=== PATIENT | female | born 1990 | race Caucasian/White ===

== ENCOUNTER 2017-03-07 17:56 | Emergency (ER) | payer OTHER ==
[~2017-03-07] VITALS: Ht 162.6 cm; Wt 77.1 kg
[2017-03-07 18:05] VITALS: BP 137/78
--- NOTE | 2017-03-07 18:11 | PHYS DOC ---
Past Medical History Past Medical History: No Pertinent History Past Surgical History: Other Additional Past Surgical Histo: DENTAL Alcohol Use: None Drug Use: None Adult General Chief Complaint Chief Complaint: INSECT BITE HPI HPI Patient is a 26 year old female presents the ED complaining of insect bite to left lower leg 2 months ago. Patient states she pulled the scab off today and noticed it oozing. Describes the pain as sharp. Rates the pain as 5/10. Denies fever, body aches, chills, nausea/vomiting, abdominal pain, chest pain, shortness of breath, conjunctivitis or rash to entire body. Review of Systems Review of Systems Constitutional: Denies fever or chills [] Eyes: Denies change in visual acuity, redness, or eye pain [] HENT: Denies nasal congestion or sore throat [] Respiratory: Denies cough or shortness of breath [] Cardiovascular: No additional information not addressed in HPI [] GI: Denies abdominal pain, nausea, vomiting, bloody stools or diarrhea [] : Denies dysuria or hematuria [] Musculoskeletal: Denies back pain or joint pain [] Integument: Complains of insect bite. Neurologic: Denies headache, focal weakness or sensory changes [] Endocrine: Denies polyuria or polydipsia [] All other systems were reviewed and found to be within normal limits, except as documented in this note. Allergies Allergies Allergies Coded Allergies Type Severity Reaction Last Updated Verified No Known Drug Allergies 12/18/13 No Physical Exam Physical Exam Constitutional: Well developed, well nourished, no acute distress, non-toxic appearance. [] HENT: Normocephalic, atraumatic, oropharynx moist Eyes: PERRLA, EOMI, conjunctiva normal, no discharge. [] Skin: Warm, dry, NICKEL SIZED INSECT BITE TO LEFT INNER CALF. NO SURROUNDING ERYTHEMA. MILD CLEAR OOZING. Back: No tenderness, no CVA tenderness. [] Extremities: No tenderness, no cyanosis, no clubbing, ROM intact, no edema. NEGATIVE HOMANS.[] Neurologic: Alert and oriented X 3, normal motor function, normal sensory function, no focal deficits noted. [] Psychologic: Affect normal, judgement normal, mood normal. [] Current Patient Data Vital Signs Vital Signs Date Time Temp Pulse Resp B/P (MAP) Pulse Ox O2 Delivery O2 Flow Rate FiO2 03/07/17 18:05 98.4 110 20 97 Room Air 98.4 EKG EKG [] Radiology/Procedures Radiology/Procedures [] Course & Med Decision Making Course & Med Decision Making Pertinent Labs and Imaging studies reviewed. (See chart for details) []Tetanus up-to-date. Will discharge with Keflex. Discussed wound treatment. Discussed leaving the scab attached. Discussed follow-up with dermatology if wound does not heal. Provided contact information/education. Discussed reasons to return to the ED. Patient understands and agrees with plan. Dragon Disclaimer Dragon Disclaimer This electronic medical record was generated, in whole or in part, using a voice recognition dictation system. Departure Departure Impression: Primary Impression: Insect bite Disposition: 01 HOME, SELF-CARE Condition: STABLE Referrals: UNKNOWN PCP NAME (PCP) JACQUELINE GARCIA MD Patient Instructions: Insect Bite Scripts Cephalexin (CEPHALEXIN) 500 Mg Capsule 1 CAP PO TID, #30 CAP Prov: BRADLY PASTOR 03/07/17 BRADLY PASTOR Mar 07, 2017 18:11
[2017-03-07] MEDS ORDERED: CEPH500C PO (18:24)
== END 2017-03-07 18:37 | disposition home or self-care (01) ==
LOC: ER 17:56
DX: S80.862A Insect bite (nonvenomous), left lower leg, initial encounter (principal); W57.XXXA Bitten or stung by nonvenomous insect and other nonvenomous arthropods, initial encounter; Y93.89 Activity, other specified; Y99.8 Other external cause status; Y92.89 Other specified places as the place of occurrence of the external cause
CPT/HCPCS: 99283

== ENCOUNTER 2020-04-26 23:02 | Emergency (ER) | payer OTHER ==
[~2020-04-26] VITALS: Ht 162.6 cm; Wt 75.0 kg
[~2020-04-26 23:02] MED LIST: CEPH500C PO
[2020-04-26 23:40] LABS: BASO # 0.1 x10^3/uL (0.0-0.2); BASO % 1 % (0-3); EOS # 0.1 x10^3/uL (0.0-0.7); EOS % 1 % (0-3); HEMATOCRIT 40.2 % (36.0-47.0); HEMOGLOBIN 14.2 g/dL (12.0-15.5); LYMPH # 3.6 x10^3/uL (1.0-4.8); LYMPH % 38 % (24-48); MEAN CORPUSCULAR HEMOGLOBIN 32 pg (25-35); MEAN CORPUSCULAR HGB CONC 35 g/dL (31-37); MEAN CORPUSCULAR VOLUME 89 fL (79-100); MONO # 0.8 x10^3/uL (0.0-1.1); MONO % 8 % (0-9); NEUT # 5.1 x10^3/uL (1.8-7.7); NEUT % 53 % (31-73); PLATELET COUNT 218 x10^3/uL (140-400); RED CELL DISTRIBUTION WIDTH 12.6 % (11.5-14.5); WHITE BLOOD COUNT 9.6 x10^3/uL (4.0-11.0)
[2020-04-26 23:42] LABS: BILIRUBIN,URINE NEGATIVE (NEG); CLARITY,URINE CLEAR; COLOR,URINE YELLOW; NITRITE,URINE NEGATIVE (NEG); PROTEIN,URINE NEGATIVE (NEG-TRACE)
[2020-04-26] MEDS ORDERED: METOCLOPRAMIDE HCL 10 MG/2 ML VIAL. IVP ONE (23:45)
[2020-04-26] MEDS ORDERED: FAMOTIDINE 20 MG/2 ML VIAL IVP ONE (23:45)
[2020-04-26] MEDS ORDERED: HYDROmorphone 2 MG/ML VIAL IVP ONE (23:45)
[2020-04-26] MEDS ORDERED: IV NORMAL SALINE 1000ML BAG 1,000 ML IV SCH (23:45)
--- NOTE | 2020-04-26 23:45 | PHYS DOC ---
Past Medical History Past Medical History: No Pertinent History Past Surgical History: Hysterectomy, Other Additional Past Surgical Histo: DENTAL Smoking Status: Current Every Day Smoker Alcohol Use: Occasionally Drug Use: None General Adult EDM: Chief Complaint: ABDOMINAL PAIN HPI: HPI: 30 yo F F with no significant past medical history presents the ED with complaints of right flank pain that is now moving into her right side upper and lower abdomen, reports it is difficult to localize, with associated nausea and nonbloody nonbilious vomiting that started around 5 PM. Patient states she had had 1 beer prior to symptom onset, reports she rarely drinks alcohol. No prior history of similar symptoms. PSH tubal ligation, LMP 2 wks ago. Review of Systems: Review of Systems: Constitutional: Denies fever or chills. [] Eyes: Denies change in visual acuity. [] HENT: Denies nasal congestion or sore throat. [] Respiratory: Denies cough or shortness of breath. [] Cardiovascular: Denies chest pain or edema. [] GI: Denies medic easier, melena, hematemesis or diarrhea : Denies dysuria, hematuria or vaginal bleeding Musculoskeletal: Denies joint pain or swelling, or midline back pain Integument: Denies rash or diaphoresis Neurologic: Denies headache, neck stiffness, focal weakness or sensory changes. [] Endocrine: Denies polyuria or polydipsia. [] Lymphatic: Denies swollen glands. [] Psychiatric: Denies depression or anxiety. [] Heart Score: Risk Factors: Risk Factors: DM, Current or recent (<one month) smoker, HTN, HLP, family history of CAD, obesity. Risk Scores: Score 0 - 3: 2.5% MACE over next 6 weeks - Discharge Home Score 4 - 6: 20.3% MACE over next 6 weeks - Admit for Clinical Observation Score 7 - 10: 72.7% MACE over next 6 weeks - Early Invasive Strategies Current Medications: Current Medications Medications (Trade) Dose Ordered Sig/Nestor Start Time Stop Time Status Last Admin Dose Admin Famotidine (Pepcid Vial) 20 mg 1X ONCE 04/26/20 23:45 04/26/20 23:46 Metoclopramide HCl (Reglan Vial) 10 mg 1X ONCE 04/26/20 23:45 04/26/20 23:46 Sodium Chloride 1,000 ml @ 1,000 mls/hr Q1H 04/26/20 23:45 04/27/20 00:44 Allergies: Allergies: Allergies Coded Allergies Type Severity Reaction Last Updated Verified No Known Drug Allergies 12/18/13 No Physical Exam: PE: Constitutional: Appears uncomfortable and in pain, well-nourished, afebrile HENT: Normocephalic, atraumatic, Eyes: EOMI, conjunctiva normal, no discharge. Neck: Normal range of motion, supple, Cardiovascular: S1/2 present, regular rhythm-tachycardic on arrival Lungs & Thorax: Speaking in full sentences, bilateral equal chest rise, no tachypnea or increased work of breathing Abdomen: soft, right upper quadrant tenderness, right lower quadrant tenderness, epigastric tenderness, no rigidity or guarding Skin: Warm, dry, no erythema, no rash. [] Back: No midline tenderness, reports right CVA tenderness-negative lloyds punch Extremities: No tenderness, no cyanosis, no edema Neurologic: Alert and oriented X 3, normal motor function, normal sensory function, no focal deficits noted. [] Psychologic: Affect normal, judgement normal, mood normal. [] Current Patient Data: Labs: Laboratory Tests Test 04/26/20 23:18 04/26/20 23:37 White Blood Count 9.6 x10^3/uL (4.0-11.0) Red Blood Count 4.50 x10^6/uL (3.50-5.40) Hemoglobin 14.2 g/dL (12.0-15.5) Hematocrit 40.2 % (36.0-47.0) Mean Corpuscular Volume 89 fL (79-100) Mean Corpuscular Hemoglobin 32 pg (25-35) Mean Corpuscular Hemoglobin Concent 35 g/dL (31-37) Red Cell Distribution Width 12.6 % (11.5-14.5) Platelet Count 218 x10^3/uL (140-400) Neutrophils (%) (Auto) 53 % (31-73) Lymphocytes (%) (Auto) 38 % (24-48) Monocytes (%) (Auto) 8 % (0-9) Eosinophils (%) (Auto) 1 % (0-3) Basophils (%) (Auto) 1 % (0-3) Neutrophils # (Auto) 5.1 x10^3/uL (1.8-7.7) Lymphocytes # (Auto) 3.6 x10^3/uL (1.0-4.8) Monocytes # (Auto) 0.8 x10^3/uL (0.0-1.1) Eosinophils # (Auto) 0.1 x10^3/uL (0.0-0.7) Basophils # (Auto) 0.1 x10^3/uL (0.0-0.2) POC Urine HCG, Qualitative Hcg negative (Negative) Laboratory Tests 04/26/20 23:18 Vital Signs: Vital Signs Date Time Temp Pulse Resp B/P (MAP) Pulse Ox O2 Delivery O2 Flow Rate FiO2 04/26/20 23:17 98.3 103 20 138/81 (100) 99 Room Air 98.3 EKG: EKG: [] Radiology/Procedures: Radiology/Procedures: []IMAGING REPORT Signed PATIENT: ROSMERY DOWLING CACCOUNT: [id number] : 1990 LOCATION: ER AGE: 30 SEX: F EXAM STATUS: PRE ER ORD. PHYSICIAN: KRYSTAL CABAN DO REASON: right flank pain into ruq/rlq PROCEDURE: CT ABDOMEN PELVIS WO CONTRAST PQRS Compliance Statement: One or more of the following individualized dose reduction techniques were utilized for this examination: 1. Automated exposure control 2. Adjustment of the mA and/or kV according to patient size 3. Use of iterative reconstruction technique CT abdomen/pelvis without contrast 04/26/2020 12:08 AM INDICATION: Right flank pain COMPARISON: None available TECHNIQUE: Multiple axial CT images of the abdomen and pelvis were obtained without intravenous contrast. Coronal and sagittal reformats are provided. FINDINGS: Lung bases are clear. Heart size within normal limits. Liver, spleen, adrenal glands, pancreas and gallbladder are normal in appearance. The abdominal aorta is normal in course and caliber. There are no pathologically enlarged lymph nodes in the abdomen and pelvis. There is no abdominal free fluid. There is no free intraperitoneal air. Small and large bowel are normal in caliber. There is no evidence for bowel obstruction. There are no pericolonic inflammatory changes. A normal, nondilated appendix is visualized without adjacent inflammatory changes. The kidneys are relatively symmetric in appearance. There is no suspicious renal mass within the limitations of a noncontrast examination. There is no hydronephrosis. There are no calculi within the kidneys, ureters or urinary bladder. Urinary bladder is within normal limits given degree of distention. Uterus and adnexa are normal by CT. No suspicious osseous abnormality is identified. IMPRESSION: No acute abnormality is identified in abdomen and pelvis. Electronically signed by: Charo Elizabeth MD (04/27/2020 12:31 AM) [facility] DICTATED and SIGNED BY: CHARO ELIZABETH MD DATE: 04/27/20 [id number] 0 Course & Med Decision Making: Course & Med Decision Making Pertinent Labs and Imaging studies reviewed. (See chart for details) Patient presented to the emergency department with nausea and vomiting with nonspecific nonlocalized abdominal pain, drug screen positive for marijuana. CT scan with normal gallbladder and appendix. Patients' pain, tachycardia, nausea and vomiting resolved. Potassium 3.4. Urinalysis with no infection or hematuria. Will discourage marijuana use and prescribe capsaicin cream for abdominal application, along with recommend warm hot showers. Will discharge home with strict ED return precautions were given for abdominal pain, dehydration, fever, nausea or vomiting. Encouraged urgent outpatient follow-up with PMD and GI as needed. Life-threatening processes were considered but are low suspicion at this time, given history, physical exam and ED workup. Pt was educated on all prescription medications and adverse effects. All patient's questions were answered and pt was stable at time of discharge. Life/limb-threatening differential includes but is not limited to, acute coronary syndrome/myocardial infarction, Boerhaave's, DKA, intracranial hemorrhage, ischemic bowel, meningitis, sepsis, surgical abdomen (AAA. acute appendicitis/cholecysitis, etc), toxidrome (drug over/overdose/carbon monoxide, etc), ovarian/testicular torsion, trauma, or infection/sepsis. I spoken with the patient and her caregivers. I explained the patient's condition, diagnoses and treatment plan based on the information available to me at this time. I have answered the patient and her caregiver's questions and addressed any concerns. The patient and her caregivers have a good understanding of patient's diagnosis, condition and treatment plan as can be expected at this point. Vital signs have been stable. Patient's condition is stable and appropriate for discharge from the emergency department. Patient will pursue further outpatient evaluation with primary care physician or other designated or consulting physician as outlined in the discharge instructions. The patient and/or caregivers are agreeable to this plan of care and follow-up instructions have been explained in detail. The patient and/or caregivers have received these instructions in written form and have expressed an understanding of the discharge instructions. The patient and/or caregivers are aware that any significant change of condition or worsening of symptoms should prompt immediate return to this or the closest emergency department or [facility] Disclaimer: Antonio Disclaimer: This electronic medical record was generated, in whole or in part, using a voice recognition dictation system. Departure Departure Impression: Primary Impression: Cannabinoid hyperemesis syndrome Additional Impressions: Nausea and vomiting Abdominal pain Marijuana use Disposition: 01 DC HOME SELF CARE/HOMELESS Condition: STABLE Referrals: UNKNOWN PCP NAME (PCP) FOLLOW UP WITH FAMILY MEDICINE: Family Medicine Address: [address] [place] [id number] Patient Instructions: Marijuana Abuse and Chemical Dependency, Nausea and Vomi ting Additional Instructions: FOLLOW UP WITH GASTROENTEROLOGY: Gastroenterology [facility] Address: [address] [place] [address] EMERGENCY DEPARTMENT GENERAL DISCHARGE INSTRUCTIONS Thank you for coming to [facility] Emergency Department (ED) today and trusting us with you care. We trust that you had a positive experience in our Emergency Department. If you wish to speak to the department management, you may call the Director at [phone]. YOUR FOLLOW UP INSTRUCTIONS ARE FOLLOWS: 1. Do you have a private Doctor? If you do not have a private doctor, please ask for a resource list of physicians or clinics that may be able to assist you with follow up care. 2. The Emergency Physicain has interpreted your x-rays. The X-Ray specialist will also review them. If there is a change in the findings, you will be notified in 48 hours when at all possible. 3. A lab test or culture has been done, your results will be reviewed and you will be notified if you need a change in treatment. ADDITIONAL INSTRUCTIONS AND INFORMATION: 1. Your care today has been supervised by a physician who is specially trained in emergency care. Many problems require more than one evaluation for a complete diagnosis and treatment. We recommend that you schedule your follow up appointment as recommended to ensure complete treatment of you illness or injury. If you are unable to obtain follow up care and continue to have a problem, or if your condition worsens, we recommend that you return to the ED. 2. We are not able to safely determine your condition over the phone nor are we able to give sound medical advice over the phone. For these safety reasons, if you call for medical advice we will ask you to come to the ED for further evaluation. 3. If you have any questions regarding these discharge instructions please call the ED at [phone]. SAFETY INFORMATION: In the interest of safety, wellness, and injury prevention; we encourage you to wear your sealbelt, if you smoke; quite smoking, and we encourage family to use a protective helmet for bicycling and other sporting events that present an increased risk for head injury. IF YOUR SYMPTOMS WORSEN OR NEW SYMPTOMS DEVELOP, OR YOU HAVE CONCERNS ABOUT YOUR CONDITION; OR IF YOUR CONDITION WORSENS WHILE YOU ARE WAITING FOR YOUR FOLLOW UP APPOINTMENT; EITHER CONTACT YOUR PRIMARY CARE DOCTOR, THE PHYSICIAN WHOSE NAME AND NUMBER YOU WERE GIVEN, OR RETURN TO THE ED IMMEDIATELY. Scripts Capsaicin (CAPSAICIN) 42.5 Gm Cream..g. 1 DAVIDA TP TID PRN for NAUSEA, #1 GM 0 Refills for nausea, vomiting or abdominal pain Prov: KRYSTAL CABAN DO 04/27/20 KRYSTAL CABAN DO Apr 26, 2020 23:45
[2020-04-26 23:47] LABS: AMORPHOUS SEDIMENT,UR PRESENT /HPF; BACTERIA,URINE 0 /HPF (0-FEW); BARBITURATES NEG (NEG); BENZODIAZEPINES NEG (NEG); CANNABINOIDS POS (NEG); COCAINE NEG (NEG); METHADONE NEG (NEG); OPIATES NEG (NEG); PHENCYCLIDINE NEG (NEG); RBC,URINE RARE /HPF (0-2); WBC,URINE RARE /HPF (0-4)
[2020-04-26 23:48] LABS: AMPHETAMINE/METHAMPHETAMINE NEG (NEG)
[2020-04-26 23:50] LABS: CALCIUM 9.1 mg/dL (8.5-10.1); CREATININE 0.7 mg/dL (0.6-1.0); GFR 98.3; POTASSIUM 3.4 mmol/L (3.5-5.1)
[2020-04-26 23:56] LABS: ALBUMIN 3.9 g/dL (3.4-5.0); DIRECT BILIRUBIN 0.1 mg/dL (0.0-0.2); TOTAL BILIRUBIN 0.3 mg/dL (0.2-1.0); TOTAL PROTEIN 7.4 g/dL (6.4-8.2)
[2020-04-27] MEDS ORDERED: KETOROLAC 15 MG/ML VIAL. IVP ONE
--- NOTE | 2020-04-27 00:34 | RAD ---
PQRS Compliance Statement: One or more of the following individualized dose reduction techniques were utilized for this examinat ion: 1. Automated exposure control 2. Adjustment of the mA and/or kV according to patient size 3. Use of iterative reconstruction technique CT abdomen/pelvis without contrast 04/26/2020 12:08 AM INDICATION: Right flank pain COMPARISON: None available TECHNIQUE: Multiple axial CT images of the abdomen and pelvis were obtained without intravenous contr ast. Coronal and sagittal reformats are provided. FINDINGS: Lung bases are clear. Heart size within normal limits. Liver, spleen, adrenal glands, pancreas and ga llbladder are normal in appearance. The abdominal aorta is normal in course and caliber. There are no pathologically enlarged lymph nodes in the abdomen and pelvis. There is no abdominal free fluid. The re is no free intraperitoneal air. Small and large bowel are normal in caliber. There is no evidence for bowel obstruction. There are no pericolonic inflammatory changes. A normal, nondilated appendix is visualized without adjacent infla mmatory changes. The kidneys are relatively symmetric in appearance. There is no suspicious renal mass within the limi tations of a noncontrast examination. There is no hydronephrosis. There are no calculi within the kid neys, ureters or urinary bladder. Urinary bladder is within normal limits given degree of distention. Uterus and adnexa are normal by C T. No suspicious osseous abnormality is identified. IMPRESSION: No acute abnormality is identified in abdomen and pelvis. Electronically signed by: Anastasia Sharma MD (04/27/2020 12:31 AM) [facility]
[2020-04-27] MEDS ORDERED: HALOPERIDOL LACTATE 5 MG/ML VIAL. IVP ONE (01:00)
[2020-04-27] MEDS ORDERED: CAPS42.514 TP (02:03)
[2020-04-27 02:32] VITALS: BP 108/55
== END 2020-04-27 02:33 | disposition home or self-care (01) ==
LOC: ER 23:02
DX: R11.2 Nausea with vomiting, unspecified (principal); R10.11 Right upper quadrant pain; R10.13 Epigastric pain; F12.90 Cannabis use, unspecified, uncomplicated; F17.200 Nicotine dependence, unspecified, uncomplicated; Z90.710 Acquired absence of both cervix and uterus; Z98.890 Other specified postprocedural states
CPT/HCPCS: 36415; 74176; 80048; 80076; 80307; 81001; 81025; 82550; 83690; 85025; 96361; 96374; 96375; 99284; G0480; J1170; J1630; J1885; J2765; J3490; J7030